=== PATIENT | male | born 1935 | race Caucasian/White ===

== ENCOUNTER → 2018-10-09 | Outpatient (REF) | payer MEDICARE ==
[~2018-10-09] MED LIST: ASPI1TAB PO; ATOR1TAB21 PO; FINA5TAB2 PO; GLUC500C5 PO; HYDR25TAB PO; LISI10TA4 PO; PERC5TAB12 PO; PREG50CA PO; SELE200T20 PO; TERA5CAP3 PO; VITA-182 PO
== END ==
LOC: M LAB REF 17:10
PROVIDERS: ATTEND Physician Assistant
DX: N39.0 Urinary tract infection, site not specified (principal)

== ENCOUNTER → 2018-10-31 | Outpatient (REF) | payer MEDICARE ==
[2018-10-31 14:36] LABS: CHLAMYDIA DNA AMPLIFICATION NEGATIVE (NEGATIVE); GC DNA AMPLIFICATION NEGATIVE (NEGATIVE)
== END ==
LOC: M LAB REF 12:12
PROVIDERS: ATTEND Physician Assistant
DX: N39.0 Urinary tract infection, site not specified (principal); Z11.3 Encounter for screening for infections with a predominantly sexual mode of transmission

== ENCOUNTER → 2019-01-25 | Outpatient (REF) | payer MEDICARE ==
[~2019-01-25] MED LIST changes: -ASPI1TAB PO; +ASPI81TA26 PO; +HYDR-2541 PO; -HYDR25TAB PO
[2019-01-25 14:54] LABS: APPEARANCE, URINE CLEAR (CLEAR); BACTERIA, URINE AUTO NEGATIVE (NEGATIVE); BILIRUBIN, URINE AUTO NEGATIVE (NEGATIVE); BLOOD, URINE BLOOD NEGATIVE (NEGATIVE); COLOR, URINE YELLOW (YELLOW); GLUCOSE, URINE (UA) AUTO NEGATIVE (NEGATIVE); KETONE, URINE AUTO NEGATIVE (NEGATIVE); LEUKOCYTE ESTERASE, URINE AUTO NEGATIVE (NEGATIVE); MUCUS, URINE SMALL (NEGATIVE); NITRITE, URINE AUTO NEGATIVE (NEGATIVE); PROTEIN, URINE AUTO NEGATIVE (NEGATIVE); RBC, URINE AUTO 0 /HPF (0-3); SPECIFIC GRAVITY URINE AUTO 1.019 (1.002-1.035); SQUAMOUS EPITHELIAL CELL UR AU 0 /HPF (0-6); UROBILINOGEN, URINE AUTO 0.2 mg/dL (0.0-2.0); WBC, URINE AUTO 1 /HPF (0-3)
== END ==
LOC: M SMT 13:30
PROVIDERS: ATTEND Nurse Practitioner Women's Health
DX: N39.0 Urinary tract infection, site not specified (principal)

== ENCOUNTER → 2019-01-31 | Outpatient (CLI) | payer MEDICARE ==
--- NOTE | 2019-01-31 14:36 | REP ---
REASON FOR EXAM: Bladder calculi and recurrent urinary tract infection. COMPARISON: 01/30/2016, the latest prior, also without contrast which showed bladder calculi with prostatomegaly and thickening of the bladder wall. There is no change in the lung bases. There is no change in the liver or spleen. There are gravel-like choleliths which have developed since the last exam. The pancreas, adrenal glands, right kidney are unchanged. Hydronephrosis seen previously on the left has resolved. There is a single 2 mm size non-obstructing nephrolith in the superior pole of the left kidney. The distal ureterolith seen on the left on the prior exam is no longer present. There are no urinary bladder calcifications present today. There is prostatomegaly status quo. Without contrast, opacification and proper distention of the urinary bladder, wall thickness cannot be commented on. There is no change in the abdominal aorta or para-aortic regions. There is no significant change in the appearance of the bowel loops or their mesenteries. There is a large right inguinal hernia which contains multiple small bowel loops and there is a small left inguinal hernia containing a knuckle of large bowel. The right-sided inguinal hernia is essentially unchanged while the left side appears to have increased in size. No free fluid or free air is seen in the pelvis. Bone window technique throughout the exam shows chronic spinal degenerative changes status quo. 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 IMPRESSION: 1. Improved findings involving the left renal collecting system and urinary bladder as described above. 2. Gravel-like choleliths are now seen. 3. Bilateral inguinal hernias as described above. 4. Other findings as described above. Electronically Signed by Jose Roberto Allison DO 01/31/2019 04:14 P
== END ==
LOC: M RAD 12:48
PROVIDERS: ATTEND Nurse Practitioner Women's Health
DX: N39.0 Urinary tract infection, site not specified (principal); N21.0 Calculus in bladder; K44.9 Diaphragmatic hernia without obstruction or gangrene

== ENCOUNTER → 2022-03-10 | Outpatient (CLI) | payer MEDICARE ==
[~2022-03-10] MED LIST changes: +E-Z-GAS II EFFERVESCENT PACKET (SODIUM BICARB./CITRIC ACID/SIMETHICONE) As Ordered ONE; +E-Z-HD 98% w/w 340GM SUSP BTL As Ordered ONE; +E-Z-PAQUE 96% w/w SUSP 176GM BTL As Ordered ONE; +LISI10TA22 PO; -LISI10TA4 PO
== END ==
LOC: M RAD 09:53
PROVIDERS: ATTEND Nurse Practitioner Adult Health
DX: R47.02 Dysphasia (principal)

== ENCOUNTER → 2022-03-21 | Outpatient (CLI) | payer MEDICARE ==
[~2022-03-21] MED LIST changes: +D400400C PO; -E-Z-GAS II EFFERVESCENT PACKET (SODIUM BICARB./CITRIC ACID/SIMETHICONE) As Ordered ONE; -E-Z-HD 98% w/w 340GM SUSP BTL As Ordered ONE; -E-Z-PAQUE 96% w/w SUSP 176GM BTL As Ordered ONE; +GNP1000T11 PO; +OMEP40CA4 PO; +OXYB10TA23 PO; +RA T500C2 PO; +[UNRECOGNIZED DRUG - CODE] PO
== END ==
LOC: M LABSMTC 12:20
PROVIDERS: ATTEND Anesthesiology
DX: Z01.812 Encounter for preprocedural laboratory examination (principal)

== ENCOUNTER 2022-03-26 08:46 | Day surgery (SDC) | payer MEDICARE ==
[~2022-03-26] VITALS: Ht 170.2 cm; Wt 65.3 kg
[~2022-03-26 08:46] MED LIST changes: +NS 1,000 ML IV ONE
[2022-03-26] MEDS ORDERED: LIDOCAINE 2% 100MG/5ML SDV (FOR ANES.) As Ordered ONE (10:32)
[2022-03-26] MEDS ORDERED: fentaNYL 100 MCG/2 ML INJECTION As Ordered ONE (10:32)
[2022-03-26] MEDS ORDERED: propofoL 200 MG/20 ML VIAL As Ordered ONE (10:32)
[2022-03-26 11:17] VITALS: BP 140/65
== END 2022-03-26 11:17 | disposition home or self-care (01) ==
LOC: M OPP 08:46
PROVIDERS: ATTEND Internal Medicine Gastroenterology
DX: K22.2 Esophageal obstruction (principal); Q39.6 Congenital diverticulum of esophagus; R13.10 Dysphagia, unspecified; R93.3 Abnormal findings on diagnostic imaging of other parts of digestive tract; Z79.02 Long term (current) use of antithrombotics/antiplatelets; Z79.82 Long term (current) use of aspirin; Z79.899 Other long term (current) drug therapy
CPT/HCPCS: 43249; J3010

== ENCOUNTER 2024-01-04 10:17 | Emergency (ER) | payer MEDICARE ==
[~2024-01-04 10:17] MED LIST changes: -NS 1,000 ML IV ONE
[2024-01-04 11:25] LABS: BASO # 0.1 10^3/uL (0.0-0.2); BASO % 0.4 % (0.0-1.0); EOS % 0.3 % (0.0-3.0); HEMATOCRIT 39.8 % (42.0-52.0); HEMOGLOBIN 12.8 g/dl (13.5-17.5); LYMPH # 1.4 10^3/uL (1.5-5.0); MEAN CORPUSCULAR HEMOGLOBIN 27.6 pg (27.0-33.0); MEAN CORPUSCULAR HGB CONC 32.2 g/dl (32.0-36.5); MONO # 0.8 10^3/uL (0.0-0.8); MONO % 4.8 % (2.0-8.0); NEUTROPHILS # 13.2 10^3/uL (1.5-8.5); NEUTROPHILS % 85.1 % (36.0-66.0); PLATELET COUNT, AUTOMATED 207 10^3/uL (150-450); RED BLOOD COUNT 4.63 10^6/uL (4.30-6.10); WHITE BLOOD COUNT 15.5 10^3/uL (4.0-10.0)
[2024-01-04] MEDS: fentaNYL 100 MCG/2 ML INJECTION IV ONE (11:39)
[2024-01-04 11:44] LABS: LIPASE 23 U/L (12-53)
[2024-01-04] MEDS ORDERED: MED REC IN PROGRESS XX SCH (11:45)
[2024-01-04 11:47] LABS: ALBUMIN 3.9 G/DL (3.2-5.2); ALKALINE PHOSPHATASE 89 U/L (46-116); ALT/SGPT 15 U/L (7.0-40); AST/SGOT 16 U/L (<34); BILIRUBIN,DIRECT 0.5 MG/DL (<0.4); BILIRUBIN,TOTAL 1.4 MG/DL (0.3-1.2); BLOOD UREA NITROGEN 16 MG/DL (9-23); CALCIUM LEVEL 8.7 MG/DL (8.3-10.6); CARBON DIOXIDE LEVEL 26 MMOL/L (20-31); CHLORIDE LEVEL 105 MMOL/L (98-107); GLOMERULAR FILTRATION RATE > 60.0 (>35); GLUCOSE, FASTING 163 MG/DL (74-106); POTASSIUM SERUM 4.4 MMOL/L (3.5-5.1); SODIUM LEVEL 139 MMOL/L (136-145); TOTAL PROTEIN 6.5 G/DL (5.7-8.2)
[2024-01-04] MEDS ORDERED: ISOVUE-370 76% 100ML VIAL As Ordered ONE (11:58)
[2024-01-04] MEDS ORDERED: XALA0.007 OU (12:39)
[2024-01-04] MEDS ORDERED: HOME MED LIST COMPLETE! XX SCH (12:40)
[2024-01-04 13:37] VITALS: BP 115/76; TEMP 98.1; O2SAT 96
== END 2024-01-04 13:58 | disposition home or self-care (01) ==
LOC: EDBD 10:17 → M ED 10:52
DX: K40.90 Unilateral inguinal hernia, without obstruction or gangrene, not specified as recurrent (principal); I10 Essential (primary) hypertension; Z79.1 Long term (current) use of non-steroidal anti-inflammatories (NSAID); Z79.899 Other long term (current) drug therapy
CPT/HCPCS: 74177; 80048; 80076; 83605; 83690; 85025; 96374; 99284; J3010; Q9967

== ENCOUNTER → 2024-09-20 | Outpatient (CLI) | payer MEDICARE ==
[~2024-09-20] MED LIST changes: +XALA0.007 OU
== END ==
LOC: M RAD 09:43
PROVIDERS: ATTEND Physician Assistant
DX: Z87.448 Personal history of other diseases of urinary system (principal)